=== PATIENT | male | born 1945 | race Caucasian/White ===

== ENCOUNTER 2019-09-27 19:04 | Outpatient (REF) | payer OTHER, SELFPAY | END 2019-09-27 19:24 | LOC: NCHCN 19:04 | PROVIDERS: PCP Internal Medicine; Visit Provider Internal Medicine | DX: R31.0 Gross hematuria (principal); R35.0 Frequency of micturition | CPT/HCPCS: 87077; 87086; 87186 ==

== ENCOUNTER 2019-09-28 10:42 | Outpatient (CLI) | payer OTHER, SELFPAY ==
--- NOTE | 2019-09-28 10:30 | DI.CT_ITS ---
EXAM: CT RENAL COLIC WO CLINICAL HISTORY: HEMATURIA GROSS, R31.0, RT GROIN PAIN TECHNIQUE: Noncontrast COMPARISON: ABD PELVIS WITH CONTRAST from 11/17/2014 FINDINGS: There is a 4 millimeter calcification at the right ureterovesical junction causing mild right hydron ephrosis. No additional urinary tract calculi are seen. Parapelvic cysts are seen at the upper pole of the left kidney. An additional cortical cyst is seen at the upper pole of the left kidney. The b ladder shows diffuse wall thickening which could indicate cystitis. The prostate is mildly enlarged. Diverticulosis is noted of the transverse through sigmoid colon. There is no evidence of diverticul itis. The appendix appears normal. There is a normal quantity of stool. The liver shows mild fatty infiltration. The patient is status post cholecystectomy. There is no biliary dilatation. Calcifi cations are noted in the spleen. The pancreas and adrenals are unremarkable. The aorta is normal in diameter and shows mild calcification. 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 IMPRESSION: Mild right hydronephrosis secondary to a 4 millimeter calcification at the right ureterovesical junct ion. Diffuse bladder wall thickening is seen which could represent cystitis.
== END 2019-09-28 11:02 ==
PROVIDERS: PCP Internal Medicine; Visit Provider Internal Medicine
DX: R31.0 Gross hematuria (principal); R10.31 Right lower quadrant pain; N20.0 Calculus of kidney; N32.89 Other specified disorders of bladder
CPT/HCPCS: 74176

== ENCOUNTER 2019-09-29 10:14 | Outpatient (REF) | payer OTHER, SELFPAY ==
[2019-10-07 09:11] LABS: Source: Passed Stone
== END 2019-09-29 10:34 ==
LOC: NCHCN 10:14
PROVIDERS: PCP Internal Medicine; Visit Provider Internal Medicine
DX: N20.0 Calculus of kidney (principal)
CPT/HCPCS: 82365

== ENCOUNTER 2019-10-20 07:42 | Emergency (ER) | payer OTHER, SELFPAY ==
[2019-10-20 07:51] VITALS: BP 156/74; PULSE 72; RESP 16; TEMP 36.6; O2SAT 96
[2019-10-20 07:54] LABS: Bilirubin Negative (Negative); Blood Moderate (Negative); Clarity Cloudy (Clear); Glucose Negative (Negative); Ketones Negative (Negative); Leukocyte Esterase Large (Negative); Nitrite Positive (Negative); Urobilinogen 0.2 EU/dL (Up TO 0.2)
[2019-10-20 08:03] LABS: WBC >50 HPF (0-5)
[2019-10-20 08:04] LABS: C & S Indicated? Yes
--- NOTE | 2019-10-20 08:26 | ED.GENADUL_ITS ---
Discharge Plan Disposition Patient Disposition: HOME Discharge Details Chief Complaint: FlankPain Clinical Impression: Pyelonephritis Primary Care Provider: Miguel Dsouza ED Provider: Silvestre Chance Home Meds and New Rx's Prescriptions: New levofloxacin [Levaquin] 750 mg tablet 750 mg PO DAILY Qty: 6 RF: 0 Continued aspirin [Aspir-81] 81 MG tablet,delayed release (DR/EC) 81 mg PO DAILY RF: 0 calcium carbonate [Calcium 600] 600 MG tablet 600 mg PO DAILY RF: 0 ascorbic acid (vitamin C) 1,000 MG tablet,chewable 1,000 mg PO DAILY RF: 0 Excedrin Extra Strength 1 EACH tablet 1 ea PO PRN RF: 0 multivitamin [Daily Vitamin] 1 EACH tablet 1 tab PO DAILY RF: 0 Discharge Instructions Instructions: Levofloxacin (By mouth), Urinary Tract Infection in Men (ED) Additional Instructions: Be sure to take the full course of antibiotics as prescribed. Drink plenty of fluids to maintain adequate hydration. Rest over the next 2 weeks with no exertional activities. Please contact your primary care physician to arrange follow-up. Return to the ER for any worsening or new concerning symptoms. Stand Alone Forms: Work Release Referrals: Miguel Dsouza MD [Primary Care Provider] - Discharge Data Discharge Date/Time-TO BE ENTERED AT DEPARTURE: 10/20/19 08:47 Medical Decision Making 74-year-old male presents with left flank pain, increased urinary frequency, some pink tinge discharge from his penis. Afebrile. Hemodynamically stable. Patient did recently have kidney stone that he passed approximately 3 weeks ago. He was found to have a urinary tract infection with E. coli that was pansensitive and completed a 7-day course of Bactrim [address] the abdomen pelvis from 09/28/2019 as interpreted by radiology and reviewed by me: FINDINGS: There is a 4 millimeter calcification at the right ureterovesical junction causing mild right hydronephrosis. No additional urinary tract calculi are seen. Parapelvic cysts are seen at the upper pole of the left kidney. An additional cortical cyst is seen at the upper pole of the left kidney. The windy dder shows diffuse wall thickening which could indicate cystitis. The prostate is mildly enlarged. Diverticulosis is noted of the transverse through sigmoid colon. There is no evidence of diverticulitis. The appendix appears normal. There is a normal quantity of stool. The liver shows mild fatty infiltration. The patient is status post cholecystectomy. There is no biliary dilatation. Calcifications are noted in the spleen. The pancreas and adrenals are unremarkable. The aorta is normal in diameter and shows mild calcification. 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 IMPRESSION: Mild right hydronephrosis secondary to a 4 millimeter calcification at the right ureterovesical junction. Diffuse bladder wall thickening is seen which could represent cystitis. Urine culture from 09/29/2019 was reviewed and interpreted by me: E. coli greater than 100,000 colonies, sensitive to all tested antibiotics including fluoroquinolones. Patient has severe penicillin allergy. Given his already been treated with Bactrim and infection is now refractory to that, I will initiate treatment with fluoroquinolone. Patient was informed of the risks of fluoroquinolone use and provided informed consent to treat. Usual customary discharge instructions were provided. Patient was encouraged to follow-up with his primary care physician and to call today to schedule follow- up appointment. Patient understands importance of timely follow-up. He also understands he should return immediately for any worsening or new concerning symptoms. HPI General Mode of arrival: ambulatory . Date/Time Provider Initiated Documentation: 10/20/19 08:02 . Limitations to Documentation: no limitations . Information obtained by: patient . HPI Narrative: 74-year-old male presents with chief complaint of left flank pain. Pain is been present for at least the past month intermittently and worse since last night. Pain is moderate. He notes associated increased urinary frequency, some pink tinge discharge from his penis. No associated fever. Patient did recently have kidney stone that he passed approximately 3 weeks ago. He was found to have a urinary tract infection with E. coli that was pansensitive and completed a 7-day course of Bactrim 2 to 3 weeks ago. Related Data Home Medications Medication Instructions Recorded Confirmed multivitamin [Daily Vitamin] 1 tab PO DAILY 12/31/12 10/20/19 aspirin [Aspir-81] 81 mg PO DAILY tab-cap 01/04/13 10/20/19 ascorbic acid (vitamin C) 1,000 mg PO DAILY tab.chew 01/05/13 10/20/19 calcium carbonate [Calcium 600] 600 mg PO DAILY 01/05/13 10/20/19 Excedrin Extra Strength 1 ea PO PRN 02/16/13 10/20/19 levofloxacin [Levaquin] 750 mg PO DAILY #6 tab 10/20/19 Previous Rx's Medication Instructions Recorded levofloxacin [Levaquin] 750 mg PO DAILY #6 tab 10/20/19 Allergies Allergy/AdvReac Type Severity Reaction Status Date / Time quinine [Quinine] Allergy Mild Unverified 10/20/19 07:56 Quinidine-Quinine Analogues Allergy Unknown Unverified 10/20/19 07:56 (Cincho [Quinidine-Quinine Analogues] ampicillin [Ampicillin] AdvReac Severe HEART Unverified 10/20/19 07:56 ATTACK egg AdvReac Intermediate LOOSE STOOL Unverified 10/20/19 07:56 General Stated Complaint: FlankPain YA: 3 Review of Systems All systems reviewed & are unremarkable except as noted in HPI and below Constitutional Constitutional: Denies fever(s) Genitourinary Genitourinary: Reports as per HPI PFSH Medical History BPH Cholecystitis DIVERTICULOSIS Headache Kidney stone Rotator cuff syndrome RIGHT Surgical History (Updated 08/19/18 @ 14:34 by [email or web address] [place]) Cholecystectomy (~2002) ERCP HERNIORRHAPHY (~1974) Rotator Cuff Repair (~2001) RIGHT Family History Mother Carcinoma of colon Father Acute myocardial infarction Sister No problems noted. Brother Hypertensive disorder, systemic arterial Brother Hypertensive disorder, systemic arterial Social History Smoking/Tobacco Use Status: Never Drug use: Never Exam Const General: cooperative and no acute distress [facility] Mouth: moist mucous membranes Eyes Sclera: normal sclerae Resp Auscultation: clear to auscultation bilaterally, no rales, no rhonchi and no wheezes Cardio Jugular venous pressure: no JVD Rate: regular rate and not tachycardic Rhythm: regular rhythm GI Palpation: soft, not firm, no guarding, no masses, not rigid and tender suprapubicly (mild) Penis: normal penis Back/Spine/Pelvis Back: CVA tenderness (left) Skin General skin exam: no rashes or lesions noted Neuro General: alert, awake and tone normal Extrem General: no edema Psych Appearance: grossly normal Mental Status: mental status grossly normal Course Vital Signs Vital signs: Vital Signs Temperature 36.6 C 10/20/19 07:51 Pulse 72 10/20/19 07:51 Respiratory Rate 16 10/20/19 07:51 Blood Pressure 156/74 H 10/20/19 07:51 Pulse Oximetry 96 10/20/19 07:51 Temperature 36.6 C 10/20/19 07:51 Temperature Source Skin 10/20/19 07:51 Pulse 72 10/20/19 07:51 Respiratory Rate 16 10/20/19 07:51 Respiratory Effort Non-Labored 10/20/19 07:51 Blood Pressure 156/74 H 10/20/19 07:51 Blood Pressure Position Sitting 10/20/19 07:51 Pulse Oximetry 96 10/20/19 07:51 Oxygen Delivery Method Room Air 10/20/19 07:51 Oxygen Flow Rate 0 10/20/19 07:51 Pain Level 7 10/20/19 08:02 Lab/Test Results Lab/Test Results: 10/20/19 07:50 Urine - Reflex from Ua Urine Culture - Pending Laboratory Tests Range/Units 10/20/19 07:50 Urine Color (Yellow) Yellow Urine Clarity (Clear) Cloudy Urine pH (5-8) 6.0 Ur Specific [place] (1.005-1.025) 1.020 Urine Protein (Negative) mg/dL >=300 H Urine Ketones (Negative) mg/dL Negative Urine Blood (Negative) Moderate H Urine Nitrite (Negative) Positive H Urine Bilirubin (Negative) Negative Urine Urobilinogen (Up TO 0.2) EU/dL 0.2 Ur Leukocyte Esterase (Negative) Large H Urine RBC Not Applicable Urine WBC (0-5) HPF >50 H Ur Epithelial Cells Not Applicable Urine Crystals Not Applicable Urine Bacteria Not Applicable Urine Mucus Not Applicable Ur Culture Indicated? Yes Urine Glucose (Negative) mg/dL Negative
[2019-10-20] MEDS: levoFLOXacin 500 MG, levoFLOXacin 250 MG 750 MG PO (08:30)
[2019-10-20] MEDS: Ibuprofen 600 MG TAB PO (08:35)
[2019-10-20 08:45] VITALS: BP 150/75; PULSE 76; RESP 16; TEMP 36.6; O2SAT 97
== END 2019-10-20 08:47 | disposition home or self-care (01) ==
PROVIDERS: Emergency Provider Student in an Organized Health Care Education/Training Program; PCP Internal Medicine
DX: N10 Acute pyelonephritis (principal); B96.20 Unspecified Escherichia coli [E. coli] as the cause of diseases classified elsewhere; Z87.440 Personal history of urinary (tract) infections; Z87.442 Personal history of urinary calculi
CPT/HCPCS: 87077; 99283; 81003; 81015; 87086; 87186

== ENCOUNTER 2019-10-26 02:56 | Outpatient (CLI) | payer OTHER, SELFPAY ==
--- NOTE | 2019-10-26 08:03 | DI.US_ITS ---
EXAM: US RENAL CLINICAL HISTORY: PYELONEPHRITIS N12 TECHNIQUE: Escobar scale, color and spectral Doppler were used. COMPARISON: ABDOMEN ULTRASOUND (P) from 11/30/2014 CT RENAL COLIC WO from 09/28/2019 FINDINGS: Renal size in cm: Right: 12.7 left: 12.3 Echogenicity: Normal Hydronephrosis: No Cyst or mass: Small parapelvic cysts bilaterally. No solid mass. Nephrolithiasis: No Other findings: None Bladder:Normal no bladder wall thickening. Both ureteral jets were visualized. Prevoid vol:150 cc Postvoid vol:11.4 cc Prostatic volume: 34 cc IMPRESSION: No hydronephrosis.
== END 2019-10-26 03:16 ==
PROVIDERS: PCP Internal Medicine; Visit Provider Internal Medicine
DX: N12 Tubulo-interstitial nephritis, not specified as acute or chronic (principal)
CPT/HCPCS: 76770

== ENCOUNTER 2025-01-20 08:39 | Emergency (ER) | payer MEDICARE, SELFPAY ==
[2025-01-20 08:45] VITALS: BP 143/67; PULSE 76; RESP 18; TEMP 36.4; O2SAT 96
--- NOTE | 2025-01-20 09:06 | ED.GENADUL_ITS ---
Discharge Plan Disposition Patient Disposition: Home Condition: Stable Discharge Details Clinical Impression: Left rib fracture, Fall Primary Care Provider: Miguel Dsouza ED Provider: Silvestre Chance Home Meds and New Rx's Prescriptions: Continued aspirin [Aspir-81] 81 MG tablet,delayed release (DR/EC) 81 mg PO DAILY calcium carbonate [Calcium 600] 600 MG tablet 600 mg PO DAILY ascorbic acid (vitamin C) 1,000 MG tablet,chewable 1,000 mg PO DAILY Excedrin Extra Strength 1 EACH tablet 1 ea PO PRN multivitamin [Daily Vitamin] 1 EACH tablet 1 tab PO DAILY Discontinued levofloxacin [Levaquin] 750 mg tablet 750 mg PO DAILY Qty: 6 0RF Rx Instructions: start 10/21/19 Discharge Instructions Instructions: How to Use an Incentive Spirometer, Rib fractures in adults, Preventing falls in adults Additional Instructions: Use incentive spirometer every 2 hours while awake for the next week. Please take ibuprofen 600 mg by mouth every 6-8 hours as needed for pain for the next few days. Use lidocaine patches for discomfort. These are available [id number]. Please follow-up with your primary care physician. Return to the emergency department immediately for any worsening or new concerning symptoms. Referrals: Miguel Dsouza MD [Primary Care Provider] - [facility] General Mode of arrival: ambulatory . Date/Time Provider Initiated Documentation: 01/20/25 08:48 . Limitations to Documentation: no limitations . Information obtained by: patient and family . HPI Narrative: HISTORY OF PRESENT ILLNESS 79-year-old male with left-sided rib pain after falling from a ladder and rolling down a small embankment 4-5 days ago. Pain persists despite physical activity and no pharmacological intervention. No respiratory distress or abdominal pain. Pain worsens with standing, rising, and deep inhalation. No other injuries, no anticoagulant therapy, no hip pain, and no analgesics taken today. On antihypertensive medication and aspirin 81 mg. Related Data Home Medications ?Medication ?Instructions ?Recorded ?Confirmed multivitamin (Daily Vitamin tablet) 1 tab PO DAILY 12/31/12 01/20/25 aspirin 81 mg tablet,delayed 81 mg PO DAILY 01/04/13 01/20/25 release (Aspir-) ascorbic acid (vitamin C) 1,000 mg 1,000 mg PO DAILY 01/05/13 01/20/25 chewable tablet calcium carbonate (Calcium 600) 600 mg PO DAILY 01/05/13 01/20/25 [id number] 250 1 ea PO PRN 02/16/13 01/20/25 mg-250 mg-65 mg tablet (Excedrin Extra Strength) Allergies Allergy/AdvReac Type Severity Reaction Status Date / Time quinine (Quinine) Allergy Mild Unknown Unverified 01/20/25 08:49 Quinidine-Quinine Analogues Allergy Unknown Unknown Unverified 01/20/25 08:49 (Cincho (Quinidine-Quinine Analogues) ampicillin (Ampicillin) AdvReac Severe HEART Unverified 01/20/25 08:49 ATTACK egg AdvReac Intermediate LOOSE STOOL Unverified 01/20/25 08:49 General Stated Complaint: Fall/Non TraumaCriteria YA: 3 Review of Systems Respiratory Respiratory: Reports as per HPI Gastrointestinal Gastrointestinal: Denies abdominal pain Musculoskeletal Musculoskeletal: Reports as per HPI Exam Narrative Exam Narrative: PHYSICAL EXAM General Appearance: Normal. Vital signs: Within normal limits. HEENT: Within normal limits. Respiratory: Lungs clear. Cardiovascular: Heart sounds regular, normal rhythm, no murmurs. Back, Musculoskeletal: Cervical motion nl, no cspine tenderness. Tenderness over the left ribs laterally, no crepitus. No thoracic spine or hip pain. Skin: Warm and dry, no rash. Neurological: Normal. Const General: cooperative and no acute distress [facility] Head: normocephalic and atraumatic Eyes Conjunctivae: normal conjunctivae Sclera: normal sclerae Neck Neck: trachea midline and supple Resp Auscultation: clear to auscultation bilaterally, no rales, no rhonchi and no wheezes Cardio Rate: regular rate and not tachycardic Rhythm: regular rhythm GI Palpation: soft, not firm, no guarding, no masses, not rigid and nontender Neuro General: patient alert, patient awake and tone normal Course Vital Signs Vital signs: Vital Signs Temperature 36.4 C 01/20/25 08:45 Pulse 76 01/20/25 08:45 Respiratory Rate 18 01/20/25 08:45 Blood Pressure 143/67 H 01/20/25 08:45 Pulse Oximetry 96 01/20/25 08:45 Temperature 36.4 C 01/20/25 08:45 Pulse 76 01/20/25 08:45 Respiratory Rate 18 01/20/25 08:45 Blood Pressure 143/67 H 01/20/25 08:45 Pulse Oximetry 96 01/20/25 08:45 Medical Decision Making ASSESSMENT AND PLAN Initial Assessment: 79-year-old male presenting with left-sided rib pain after falling from a ladder and rolling down a small embankment. Pain worsens with deep breaths and certain movements. ED Course: - Physical examination: Tenderness over the fourth rib laterally, no crepitus, clear lung sounds, no cervical or thoracic spine tenderness, no abdominal pain. - Chest x-ray: Read by me and the radiologist, shows a fracture of the eighth rib on the left side, no pneumothorax. - Pain management: Declined ibuprofen and lidocaine patch. - Prevent post fracture complications: Advised to use an incentive spirometer every 2 hours while awake for the next week. Final Assessment: Patient has a left-sided rib fracture confirmed by chest x- ray. No pneumothorax. Pain management and pneumonia prevention plan discussed. Clinical Impression: - Left-sided rib fracture Disposition: - Discharge - Follow-Up: Advised to follow up with primary care physician if pain worsens or if there are any concerns. MDM Components Evaluation: - Number of Differential Diagnoses or Management Options: Rib fracture, pneumot horax - Amount and Complexity of Data Reviewed: Chest x-ray - Risk of Complication and Morbidity or Mortality: Moderate risk due to potential for pneumonia from shallow breathing. This document was written with the assistance of [employer]. The patient consented to its use. Quality:SDOH Health Related Social Needs: No Data to Display PFSH All Active Problems Fall (Acute) Left rib fracture (Acute) Medical History Headache Cholecystitis Rotator cuff syndrome RIGHT Kidney stone DIVERTICULOSIS BPH Surgical History Rotator Cuff Repair (~2001) RIGHT HERNIORRHAPHY (~1974) ERCP Cholecystectomy (~2002) Family History Mother Carcinoma of colon Father Acute myocardial infarction Sister No problems noted. Brother Hypertensive disorder, systemic arterial Brother Hypertensive disorder, systemic arterial Social History Smoking/Tobacco Use Status: Never Smoking risk assessment performed?: Yes Drug use: Never
[2025-01-20] MEDS: Lidocaine 5% Patch 1 PATCH TP (09:09)
--- NOTE | 2025-01-20 09:29 | DI.RAD_ITS ---
Exam(s) XR RIBS LT W PA LAT CHEST CLINICAL HISTORY FALL, LEFT RIB PAIN. COMPARISON: CR ABD FLAT UPRIGHT PA CHEST from 12/29/2012 TECHNIQUE:: PA and lateral views of the chest and four views of the left ribs were performed. FINDINGS: LUNGS: Suboptimally inflated on the lateral view but clear. No pleural abnormality seen. HEART: Normal. MEDIASTINUM: Normal. BONES: Nondisplaced fracture of the left 8th rib. The lower ribs are suboptimally penetrated. No co mpression fractures are seen in the thoracic spine. No bony destructive lesion is seen. OTHER FINDINGS: None. IMPRESSION: 1. Left 8th rib fracture. 2. No acute pulmonary findings.
[2025-01-20 09:41] VITALS: BP 126/57; PULSE 78; RESP 18; O2SAT 95
== END 2025-01-20 10:25 | disposition home or self-care (01) ==
PROVIDERS: Emergency Provider Student in an Organized Health Care Education/Training Program; PCP Internal Medicine
DX: S22.32XA Fracture of one rib, left side, initial encounter for closed fracture (principal); I10 Essential (primary) hypertension; Z79.82 Long term (current) use of aspirin; W17.81XA Fall down embankment (hill), initial encounter; Y93.01 Activity, walking, marching and hiking
CPT/HCPCS: 99283; 71046; 71100